=== PATIENT | male | born 2000 | race Caucasian/White ===

== ENCOUNTER → 2019-11-27 | Outpatient (CLI) | payer OTHER, SELFPAY ==
[2019-11-27 08:50] VITALS: BMI 24.3
--- NOTE | 2019-11-27 08:58 | RAD_ITS ---
STUDY: X-RAY - LEFT HAND REASON FOR EXAM: Left hand injury. TECHNIQUE: 3 view(s) of the hand. COMPARISON: Radiographs obtained earlier the same day. FINDINGS: Normal radiocarpal articulation. Normal distal radioulnar joint. Normal visualized carpal bones. Normal carpal articulations Normal carpometacarpal articulation of the thumb. Normal second through fifth carpometacarpal joints. Normal metacarpi. Normal metacarpophalangeal joint of the thumb. Normal interphalangeal joint of the thumb. Normal proximal and distal phalanges of the thumb. Normal metacarpophalangeal joints of the second through fifth fingers. Normal proximal and distal interphalangeal joints of the second through fifth fingers. There is a mildly displaced fracture of the base of the fifth proximal phalanx. There is an overlying cast. RAD/Hand Min 3 Views IMPRESSION: No interval change of fracture of the base of the fifth proximal phalanx following cast application. Electronically Signed: Efraín Tanner MD at 9:29 EST Tel , Service support ,
--- NOTE | 2019-11-27 09:47 | RAD_ITS ---
HISTORY: HISTORY: INJURY LEFT HAND, BRUISING AND PAIN, LROM 5TH DIGIT, REPEATED IMAGES W/O CAST XR Hand Min 3 Views COMPARISON: None FINDINGS: # of images incl. paperwork: 3 3 views of the left hand. Comminuted fractures present through the proximal end of the fifth proximal phalanx. There is apex lateral/radial angulation. The fracture extends to the fifth metacarpal phalangeal joint. There is additional apex anterior angulation. No additional fractures are perceived. RAD/Hand Min 3 Views IMPRESSION: Comminuted fracture of the proximal end of the fifth proximal phalanx with apex anterior and radial angulation. Extension into the joint. at 0551 Reported and signed by: Ole Ramon MD Electronically Signed: Ole Ramon MD at 5:49 EST Tel , Service support ,
== END | disposition home or self-care (01) ==
LOC: HPRAD 08:58
PROVIDERS: PCP Family Medicine; Referring Provider Physician Assistant; Visit Provider Physician Assistant
DX: M79.642 Pain in left hand (principal); S69.90XA Unspecified injury of unspecified wrist, hand and finger(s), initial encounter
CPT/HCPCS: 73130